=== PATIENT | male | born 1975 | race Caucasian/White ===

== ENCOUNTER → 2019-12-08 | Outpatient (CLI) | payer OTHER ==
[2019-12-08 09:13] LABS: HEMOGLOBIN 15.3 g/dl (13.5-18.0); MEAN CELL VOLUME 84 fl (80.0-100.0); MEAN CORPUSCULAR HEMOGLOBIN 28 pg (27.0-31.0); MEAN CORPUSCULAR HGB CONC 33 g/dl (33.0-37.0); MEAN PLATELET VOLUME 10.2 fl (7.4-10.4); PLATELET COUNT 209 K/mm3 (130-400); RED BLOOD COUNT 5.48 M/mm3 (4.20-5.60); REDCELL DISTRIBUTION WIDTH-CV 13.3 % (11.5-14.5)
[2019-12-08 11:10] LABS: ALBUMIN 4.3 gm/dL (3.5-5.0); BILIRUBIN,TOTAL 0.8 mg/dL (0.0-1.0); CALCIUM 9.2 mg/dL (8.4-10.2); CHOLESTEROL RISK RATIO 5.7; CREATININE, serum 0.9 (0.66-1.25); POTASSIUM 4.7 mmol/L (3.4-5.0); TOTAL PROTEIN 7.6 gm/dL (6.4-8.2)
[2019-12-08 11:40] LABS: THYROID STIMULATING HORMONE 1.84 uIU/mL (0.465-4.680)
== END ==
LOC: COL.LAB 08:55
PROVIDERS: Emergency Medicine
DX: Z13.220 Encounter for screening for lipoid disorders (principal); E88.81 Metabolic syndrome and other insulin resistance; E66.01 Morbid (severe) obesity due to excess calories

== ENCOUNTER → 2019-12-22 | Outpatient (CLI) | payer OTHER ==
[~2019-12-22] VITALS: Ht 181.6 cm; Wt 121.3 kg
[2019-12-22 08:23] VITALS: BP 126/90; PULSE 64
== END ==
LOC: LIGHT 08:00
DX: Z68.36 Body mass index [BMI] 36.0-36.9, adult (principal); E88.81 Metabolic syndrome and other insulin resistance; K21.9 Gastro-esophageal reflux disease without esophagitis; M54.5 Low back pain
CPT/HCPCS: G0463